=== PATIENT | male | born 1990 | race Caucasian/White ===

== ENCOUNTER 2023-04-24 18:13 | Emergency (ER) | payer MEDICAID ==
[~2023-04-24] VITALS: Ht 182.9 cm; Wt 96.2 kg
[2023-04-24 18:18] VITALS: BP 150/89; PULSE 124; TEMP 98.3; O2SAT 99
[2023-04-24] MEDS ORDERED: DOXY100C2 PO (18:23)
[2023-04-24] MEDS ORDERED: NAPR-56 PO (18:23)
[2023-04-24] MEDS ORDERED: ketorolac trometh inj. 60 MG/2 ML VIAL IM ONE (18:25)
[2023-04-24 18:26] VITALS: RESP 18
== END 2023-04-24 18:44 | disposition home or self-care (01) ==
LOC: ER 18:13
DX: K04.7 Periapical abscess without sinus (principal); Z88.0 Allergy status to penicillin
CPT/HCPCS: 96372; 99283; J1885